=== PATIENT | male | born 1975 | race Two or more races ===

== ENCOUNTER 2018-02-24 21:39 | Emergency (ER) | payer OTHER ==
[~2018-02-24] VITALS: Ht 177.8 cm; Wt 129.3 kg
[2018-02-24 22:49] VITALS: BP 146/85
[2018-02-24] MEDS ORDERED: HYDR-971 PO (23:05)
--- NOTE | 2018-02-24 23:06 | PHYS DOC ---
Past Medical History Past Medical History: Diabetes-Type II, Hypertension Past Surgical History: No Surgical History Alcohol Use: None Drug Use: None Adult General Chief Complaint Chief Complaint: TOOTH ACHE OR PAIN HPI HPI Patient is a 42 year old male who presents with right lower molar pain 1 week. Patient denies fever and states has a dentist appointment tomorrow 154. Patient states she's been taking ibuprofen 800 mg for pain. Patient rates pain an 8 out of 10. Review of Systems Review of Systems Constitutional: Denies fever or chills [] Eyes: Denies change in visual acuity, redness, or eye pain [] HENT: Denies nasal congestion or sore throat. Right lower molar dental pain. [] Respiratory: Denies cough or shortness of breath [] Cardiovascular: No additional information not addressed in HPI [] GI: Denies abdominal pain, nausea, vomiting, bloody stools or diarrhea [] : Denies dysuria or hematuria [] Musculoskeletal: Denies back pain or joint pain [] Integument: Right tricep itching rash rash or skin lesions [] Neurologic: Denies headache, focal weakness or sensory changes [] Endocrine: Denies polyuria or polydipsia [] All other systems were reviewed and found to be within normal limits, except as documented in this note. Current Medications Current Medications Current Medications Medications (Trade) Dose Ordered Sig/Cholo Start Time Stop Time Status Last Admin Dose Admin Acetaminophen/ Hydrocodone Bitart (Lortab 5/325) 1 tab STK-MED ONCE 02/24/18 23:11 02/24/18 23:22 DC Dexamethasone (Decadron) 4 mg STK-MED ONCE 02/24/18 23:11 02/24/18 23:12 DC Allergies Allergies Allergies Coded Allergies Type Severity Reaction Last Updated Verified No Known Drug Allergies 02/24/18 No Physical Exam Physical Exam Constitutional: Well developed, well nourished, no acute distress, non-toxic appearance. [] HENT: Normocephalic, atraumatic, bilateral external ears normal, oropharynx moist, no oral exudates, nose normal. Right lower back molar is black in color. Gum line is red. [] Eyes: PERRLA, EOMI, conjunctiva normal, no discharge. [] Neck: Normal range of motion, no tenderness, supple, no stridor. [] Cardiovascular:Heart rate regular rhythm, no murmur [] Lungs & Thorax: Bilateral breath sounds clear to auscultation [] Abdomen: Bowel sounds normal, soft, no tenderness, no masses, no pulsatile masses. [] Skin: Warm, dry, no erythema, Right tricep dermatitis rash. [] Back: No tenderness, no CVA tenderness. [] Extremities: No tenderness, no cyanosis, no clubbing, ROM intact, no edema. [] Neurologic: Alert and oriented X 3, normal motor function, normal sensory function, no focal deficits noted. [] Psychologic: Affect normal, judgement normal, mood normal. [] Current Patient Data Vital Signs Vital Signs Date Time Temp Pulse Resp B/P (MAP) Pulse Ox O2 Delivery O2 Flow Rate FiO2 02/24/18 23:14 20 99 Room Air 02/24/18 22:49 98.1 82 146/85 (105) 98.1 EKG EKG [] Radiology/Procedures Radiology/Procedures [] Course & Med Decision Making Course & Med Decision Making Patient is a 42 year old male who presents with right lower molar pain 1 week. Patient denies fever and states has a dentist appointment tomorrow [id number]. Patient states she's been taking ibuprofen 800 mg for pain. Patient rates pain an 8 out of 10. Upon examination patient's back lower molar is black in color and gum line is slightly red. Patient has no facial swelling. Patient is afebrile. Patient has a appointment tomorrow. Patient also complains of right arm poison flora. The poison flora rashes on his right tricep area and it is not weeping. Patient states is been there for the last 3 days. Patient is given a dose of dexamethasone here in the ED, one [place]. Patient is given a prescription for [place] and Triamcinolone ointment. Patient is discharged home in stable condition. [] Dragon Disclaimer Dragon Disclaimer This electronic medical record was generated, in whole or in part, using a voice recognition dictation system. Departure Departure Impression: Primary Impression: Dental caries Additional Impression: Poison flora Disposition: 01 HOME, SELF-CARE Condition: STABLE Referrals: ELLIS LINCOLN MD (PCP) Patient Instructions: Dental Caries, Poison Flora Additional Instructions: Follow up with your dentist tomorrow as planed. Take medications as prescribed. Scripts Triamcinolone Acetonide (TRIAMCINOLONE ACETONIDE 0.5% OINT) 15 Gm Oint...g. 1 SIENNA TP PRN TID, #30 GM Prov: LISA FLOR APRN 02/24/18 Hydrocodone/Apap 5-325 (NORCO 5-325 TABLET) 1 Each Tablet 1 TAB PO PRN Q6HRS PRN for PAIN, #6 TAB 0 Refills Prov: LISA FLOR APRN 02/24/18 Attending Signature Attending Signature I have reviewed the PA/SWIMMING COACH OR INSTRUCTOR's note and plan of care. I was available for consultation as needed during the patient's visit in the emergency department. I agree with the clinical impression, plan, and disposition. Problem Qualifiers LISA FLOR APRN Feb 24, 2018 23:05 ELLIS SOLIS DO Feb 26, 2018 04:29
[2018-02-24] MEDS ORDERED: TRIA15OI9 TP (23:08)
[2018-02-24] MEDS ORDERED: DEXAMETHASONE 4 MG TABLET ONE (23:11)
[2018-02-24] MEDS ORDERED: HYDROcodone/APAP 5/325MG 1 TAB TABLET ONE (23:11)
[2018-02-24] MEDS ORDERED: HYDROcodone/APAP 5/325MG 1 TAB TABLET PO ONE (23:15)
[2018-02-25] MEDS ORDERED: DEXAMETHASONE 4 MG TABLET PO SCH (08:00)
== END 2018-02-24 23:17 | disposition home or self-care (01) ==
LOC: ER 21:39
DX: K02.9 Dental caries, unspecified (principal); L23.7 Allergic contact dermatitis due to plants, except food; I10 Essential (primary) hypertension; E11.9 Type 2 diabetes mellitus without complications
CPT/HCPCS: 99283; J8540